=== PATIENT | female | born 1945 | race Caucasian/White ===

== ENCOUNTER 2023-10-30 09:52 | Emergency (ER) | payer MEDICARE, OTHER ==
[~2023-10-30] VITALS: Ht 167.6 cm; Wt 113.6 kg
[2023-10-30] MEDS ORDERED: KETOROLAC TROMETHAMINE 30 MG/ML VIAL IM ONE (10:15)
[2023-10-30] MEDS ORDERED: METFORMIN HCL500 MG PO (10:23)
[2023-10-30] MEDS ORDERED: PAROXETINE HCL30 MG PO (10:23)
[2023-10-30] MEDS ORDERED: LISINOPRIL10 MG PO (10:23)
[2023-10-30] MEDS ORDERED: LOVASTATIN40 MG PO (10:23)
[2023-10-30 11:48] VITALS: BP 124/68
== END 2023-10-30 11:52 | disposition home or self-care (01) ==
LOC: ED 09:52
DX: R51.9 Headache, unspecified (principal)
CPT/HCPCS: 96372; 99284; J1885

== ENCOUNTER 2024-08-07 03:38 | Inpatient (IN) | payer MEDICARE, OTHER ==
[~2024-08-07] VITALS: Ht 167.6 cm; Wt 114.9 kg
[2024-08-07] VITALS (10 sets, daily range): BP systolic 107–175; BP diastolic 46–99
[~2024-08-07 03:38] MED LIST: LISINOPRIL10 MG PO; LOVASTATIN40 MG PO; METFORMIN HCL500 MG PO; PAROXETINE HCL30 MG PO
[2024-08-07] MEDS ORDERED: LACTATED RINGER'S 1,000 ML IV PRN (03:45)
[2024-08-07] MEDS ORDERED: CEFTRIAXONE/SODIUM CHLORIDE 2 GM/100 ML PIGGYBACK IV ONE (03:45)
[2024-08-07 04:12] LABS: BILIRUBIN, URINE NEGATIVE (negative); BLOOD/HGB, URINE SMALL (Negative); KETONE, URINE NEGATIVE (Negative); LEUK ESTERASE, URINE MODERATE (negative); NITRITE, URINE POSITIVE (negative)
[2024-08-07 04:15] LABS: BASOPHILS 0.2 % (0-2); EOSINOPHILS 0.6 % (0-6); LYMPHOCYTES 5.9 % (24-44); MCH 32.4 (27-36); MCHC 33.4 g/dl (30-36); MONOCYTES 10.3 % (0-12); PLATELET COUNT 112 K/uL (140-440); RBC 4.02 M/ul (4.3-5.7); RDW 13.5 (10.5-15.0)
[2024-08-07 04:24] LABS: PARTIAL THROMBOPLASTIN TIME 29.1 Sec (22.9-41.3)
[2024-08-07 04:25] LABS: INR 1.1 (0.80-1.30); PROTIME 13.5 Sec (11.2-14.2)
[2024-08-07 04:26] LABS: BACTERIA, URINE 2+ /hpf (negative); CASTS, URINE NONE SEEN \\lpf; COLLECTION TYPE, URINE CLEAN CATCH; CRYSTALS, URINE NONE SEEN (0-1+); EPITHELIAL CELLS, URINE SQUAMOUS 1+ /lpf (0-1+); REFLEX CULTURE, URINE Yes (No); WHITE BLOOD CELLS, URINE >50 /HPF (0-5)
[2024-08-07 04:28] LABS: ALBUMIN/GLOBULIN RATIO 0.49 (1.1-2.4); ANION GAP 11.2 (7-21); BILIRUBIN, TOTAL 0.4 ng/dL (0.2-1.0); BUN/CREATININE RATIO 17.85 (6.0-28.6); CALCIUM 8.8 mg/dL (8.5-10.1); CREATININE, SERUM 1.4 mg/dL (0.55-1.02); POTASSIUM 4.2 mmol/L (3.5-5.1); PROTEIN, TOTAL 6.1 g/dL (6.4-8.2)
[2024-08-07 04:33] LABS: LACTIC ACID, BLOOD 1.3 mmol/L (0.4-2.0)
[2024-08-07 04:39] LABS: TSH, 3RD GENERATION 1.543 uIU/mL (0.358-3.740)
[2024-08-07] MEDS ORDERED: AZITHROMYCIN 250 MG TAB PO ONE (06:00)
[2024-08-07] MEDS ORDERED: NOREPINEPHRINE BITARTRATE 250 ML IV SCH (06:00)
[2024-08-07] MEDS ORDERED: DEXTROSE 5% 1,000 ML IV PRN (07:45)
[2024-08-07] MEDS ORDERED: SODIUM CHLORIDE 0.9% 1,000 ML IV SCH (07:45)
[2024-08-07] MEDS ORDERED: ACETAMINOPHEN 325 MG TAB PO PRN (07:45)
[2024-08-07] MEDS ORDERED: ondansetron HCL 4 MG/2 ML VIAL IV PRN (07:45)
[2024-08-07] MEDS ORDERED: DEXTROSE 50% 50 ML SYR IV PRN ×2 (07:45)
[2024-08-07] MEDS ORDERED: IBLOOD GLUCOSE TEST STRIP 1 EA TEST XX PRN (07:45)
[2024-08-07] MEDS ORDERED: GLUCAGON,HUMAN RECOMBINANT 1 MG/ML VIAL SUB-Q PRN (07:45)
[2024-08-07] MEDS ORDERED: INSULIN LISPRO 100 UNIT/ML ML SUB-Q SCH (08:00)
[2024-08-07] MEDS ORDERED: IBLOOD GLUCOSE TEST STRIP 1 EA TEST VI SCH (08:00)
[2024-08-07] MEDS ORDERED: LISINOPRIL5 MG PO (08:05)
--- NOTE | 2024-08-07 09:02 | NUR ---
REPORT RECIEVED FROM TABITHA SANCHEZ AND PT ARRIVED ON FLOOR WITH TABITHA LEON. PT SLID TO BED AND ROLLED TO REMOVED SOILED LINENS AND ASSESS SKIN. PT HAD SMALL AMT STOOL. RED IN FOLDS, SKIN BARRIER APPLIED AFTER CLEANING. PT TOLERATED WELL. ORDERED BREAKFAST. PT FED SELF. ALERT TO SELF AND ABLE TO ANSWER SOME QUESTIONS BUT NOT MUCH HX. PT TREMULOUS. BP MAP OF 70
[2024-08-07] MEDS ORDERED: MICONAZOLE NITRATE 1 EA BTL TOP SCH (09:47)
--- NOTE | 2024-08-07 10:15 | NUR ---
APPLIED ANTIFUNGAL TO PANNUS AND BREAST, GROIN AREAS. PT TOLERATED WELL. 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 DENIES NEEDS, DRINKING HER COFFEE.
--- NOTE | 2024-08-07 11:54 | NUR ---
PT NOT AVAILABLE FOR VISIT. PROVIDED PRAYER.
--- NOTE | 2024-08-07 11:59 | NUR ---
PT EATING LUNCH. BS WAS WNL. DENIES CONCERNS.
[2024-08-07] MEDS ORDERED: PHARMACY RENAL DOSE ADJUSTMENT 1 DOSE MISC PO SCH (12:00)
--- NOTE | 2024-08-07 13:19 | NUR ---
PT STATED SHE WET HER PANTS AND THE PUREWICK DID NOT PICK ANY OF IT UP. CHANGED WITH TABITHA Gibson ASSISTANCE. PT STATES SHE IS VERY TIRED AND WOULD LIKE A NAP.
--- NOTE | 2024-08-07 13:49 | NUR ---
PT WAS MOVING DURING BP AND READ EXTREMELY HIGH. REPEATED AND DID A MANUAL BP ON THE OTHER SIDE. BP 108\60 MANUALLY.
--- NOTE | 2024-08-07 14:30 | NUR ---
Pt lives at [facility]. She uses a walker and is mostly independent with her walker. Pt has been weak. She uses a shower chair. Per staff at [facility] pt did have HH PT, but declined to work with them. Plan is for pt to return to [facility], [place] when she is a 1 person assist and feeling better. Will need to fu with pt when she is feeling better for more infor or when family arrive.
--- NOTE | 2024-08-07 14:46 | NUR ---
PT UNABLE TO SLEEP. TURNED OFF LIGHTS AND TV SOUND.
--- NOTE | 2024-08-07 16:30 | NUR ---
PT FINISHED CRACKERS. WATCHING TV. DENIES NEEDS ATT.
--- NOTE | 2024-08-07 17:00 | NUR ---
PT BOOSTED IN BED AND SET UP FOR DINNER. PT STATES SHE ISN'T VERY HUNGRY SHE JUST ATE CRACKERS.
--- NOTE | 2024-08-07 17:13 | NUR ---
PT IV INFILTRATED NS. WRAPPED AND ELEVATED ON PILLOW. PT EATING DINNER.
--- NOTE | 2024-08-07 17:33 | NUR ---
STARTED NEW IV IN LFA. TW. IVF INFUSING. CHECKED DEPENDS, DRY NO STOOL, PURE WICK IN PLACE. EMPTIED CANISTER.
--- NOTE | 2024-08-07 18:57 | NUR ---
PT NOW SLEEPING. IVF INFUSING WO SIGNS OF INFILTRATION.
--- NOTE | 2024-08-07 19:55 | NUR ---
PATIENT ALERT, TALKATIVE WITH THIS RN , SHE IS DISORIENTED ALL BUT SELF. SHE REPORTS NO PAIN, SHE DID ASK FOR COKE, KAYLEYER, HOTDOGS, THIS RN SAID "I MIGHT BE ABLE TO GET A DIET PEPSI FROM THE [facility] LATER." SHE SAID, "THAT WOULD BE GREAT!" PATIENT NOTED TO HAVE COOL EXTREMETIES, WARM BLANKETS PROVIDED, AND ROOM TEMP TURNED UP. PATIENT SAID, "I THOUGHT THE ROOM WAS A LITTLE COOL, I JUST THOUGHT IT WAS ME." ASSESSMENT COMPLETE, V/S STABLE.
--- NOTE | 2024-08-07 21:45 | NUR ---
TWO RN ASSIST, PATIENT ASKED IF SHE IS READY FOR BED, SHE SAID, "YES" THIS RN AND SHANE CORNELL RN ASSISTED TO CHANGE LINENS, DEPENDS, AND PURWICK AT THIS TIME ALSO WASHED PANUS/GROIN AREA DRIED AND POWDERED WITH NYSTATIN POWDER TO ENTIRE AREA. PATIENT PLACED IN CLEAN GOWN AND REPOSITIONED TO PATIENT STATED COMFORT. SHE REPORTS SHE IS READY FOR SLEEP. NO OTHER NEEDS VERBALIZED AND CALL LIGHT IN REACH.
[2024-08-07] MEDS ORDERED: hydrALAZINE HCL 20 MG/ML VIAL IV PRN (22:45)
[2024-08-08] VITALS (13 sets, daily range): BP systolic 103–174; BP diastolic 55–86
--- NOTE | 2024-08-08 00:10 | NUR ---
PATIENT ASSISTED TO ROLL TO LEFT SIDE FOR COMFORT. PATIENT HELPED WITH BED MOBILITY.
--- NOTE | 2024-08-08 00:18 | NUR ---
PATIENT SLEEPING, STARTLED WITH RN AT BEDSIDE. ASSESSMENT COMPLETE NO NEW CONCERNS, NO REQUESTS AT THIS TIME.
--- NOTE | 2024-08-08 04:06 | NUR ---
PATIENT RESTING IN BED EYES CLOSED, RR 25/MIN, NO DISTRESS NOTED, PATIENT MILD SNORING NOTED.
[2024-08-08 05:29] LABS: BASOPHILS 0.1 % (0-2); EOSINOPHILS 1.1 % (0-6); HEMATOCRIT 37.5 % (35.0-50.0); HEMOGLOBIN 12.7 g/dL (12.0-18.0); LYMPHOCYTES 8.4 % (24-44); MCHC 33.8 g/dl (30-36); MCV 97.6 fl (81-99); MONOCYTES 11.5 % (0-12); NEUTROPHILS 78.9 % (39-80); PLATELET COUNT 112 K/uL (140-440); RBC 3.84 M/ul (4.3-5.7); RDW 13.5 (10.5-15.0)
[2024-08-08 05:45] LABS: ALBUMIN 1.7 g/dL (3.4-5.0); ALBUMIN/GLOBULIN RATIO 0.41 (1.1-2.4); ANION GAP 11.4 (7-21); BILIRUBIN, TOTAL 0.3 ng/dL (0.2-1.0); BUN/CREATININE RATIO 18.4 (6.0-28.6); CALCIUM 8.4 mg/dL (8.5-10.1); CREATININE, SERUM 1.25 mg/dL (0.55-1.02); MAGNESIUM 1.6 mg/dL (1.8-2.4); PHOSPHORUS, INORGANIC 2.7 mg/dL (2.5-4.9); POTASSIUM 4.4 mmol/L (3.5-5.1); PROTEIN, TOTAL 5.8 g/dL (6.4-8.2)
--- NOTE | 2024-08-08 07:20 | NUR ---
REPORT FROM TABITHA MARTINEZ INTERNATIONAL MARKETING INTERN. PATIENT RESTING IN BED AT THIS TIME.
[2024-08-08] MEDS ORDERED: MAGNESIUM CHLORIDE 64 MG TABCR PO ONE (08:00)
--- NOTE | 2024-08-08 08:46 | NUR ---
PATIENT WAKES TO RN IN ROOM. PATIENT READY FOR BREAKFAST BUT WANTS TO SIT IN CHAIR. PHYSICAL THERAPY TO ASSIST IN THIS. PATIENT AGREEABLE.
--- NOTE | 2024-08-08 09:10 | NUR ---
PHYSICAL THERAPY IN ROOM. PATIENT UP TO CHAIR. 2 PERSON ASSIST WITH WALKER.
--- NOTE | 2024-08-08 09:55 | NUR ---
PATIENT UP IN CHAIR WITH PUREWICK IN PLACE. PHONE CALL FROM RACHEL.
--- NOTE | 2024-08-08 11:47 | NUR ---
IN TO SPEAK WITH THE PATIENT. PATIENT IS UNSURE WHO HERE PCP IS AT THIS TIME. REQUESTED PERMISSION TO CALL [facility] TO DISCUSS, PATIENT AGREES. PER REBEL AT [facility] PATIENT IS ESTABLISHED WITH RENAN WHEELER. EMAIL SEND TO ADMITTING TO UPDATE.
--- NOTE | 2024-08-08 11:54 | NUR ---
PATIENT REMAINS UP IN CHAIR FOR LUNCH. BLOOD SUGAR CHECKED AND 1 UNIT GIVEN PER SLIDING SCALE. DENIES NEEDS AT THIS TIME.
--- NOTE | 2024-08-08 13:35 | NUR ---
DR. DAVEY IN ROOM
--- NOTE | 2024-08-08 14:04 | NUR ---
UR CLINICAL REVIEW: 2 MN FOR [facility] INPT CRITERIA FOR [facility] INPT 08/07/24 @ 0753 ORDER MATCHES REG NO AUTH REQUIRED PER MEDICARE GUIDELINES DISCHARGE TO HOME WHEN STABLE. PATIENT RESIDES AT [facility]
--- NOTE | 2024-08-08 14:59 | NUR ---
patient up in chair. purewick in place. denies needs
--- NOTE | 2024-08-08 16:11 | NUR ---
PATIENT TRANSPORTED IN CHAIR TO MS ROOM 121. VSS. BEDSIDE REPORT TO TABITHA ABBOTT.
--- NOTE | 2024-08-08 19:23 | NUR ---
RECEIVED REPORT FROM TABITHA ABBOTT. PT UP IN CHAIR, READY FOR BED. UPSET OPERATOR'S NOTIFIED AND IN TO TRANSFER TO BED.
--- NOTE | 2024-08-08 19:45 | NUR ---
PT RESTING IN BED, REPORTS BEING VERY TIRED TONIGHT. VSS. DENIES PAIN. ORIENTED X SELF AND SITUATION BUT NOT PLACE OR DATE. LSC DIM. HRR. BTA. UNSURE OF LBM. PUREWICK IN PLACE-UO JAYLYN. LFA IV W/ IVF INFUSING. BRIGHT RED RASH TO RIGHT BREAST, PANNUS AND GROIN-CLEANSED W/ SOAP AND WATER AND ANTI-FUNGAL POWDER APPLIED. SCD'S IN PLACE FOR HS. BED ALARM ON FOR SAFETY. CALL LIGHT WITHIN REACH-REINFORCED USE.
--- NOTE | 2024-08-08 21:44 | NUR ---
PT W/ INCREASING CONFUSION AND SUSPICION W/ STAFF NEEDING REORIENTATION. BED ALARM IN PLACE.
--- NOTE | 2024-08-08 22:45 | EKG ---
[facility] [address] [place] [address] Signed Sinus rhythm with premature atrial complexes Low voltage QRS Right bundle branch block Abnormal ECG No previous ECGs available Confirmed by Edmund Davey MD () on 08/08/2024 10:45:40 PM Electronically Signed By: EDMUND DAVEY MD 08/08/24 2245 PATIENT NAME: SHAUNNA HWANG Electrocardiogram DATE OF : 41 PHYSICIAN: EDMUND DAVEY MD REPORT #: [id number] REPORT IS CONFIDENTIAL AND NOT TO BE RELEASED WITHOUT AUTHORIZATION
--- NOTE | 2024-08-08 22:59 | NUR ---
PT AWAKE R/T IV BEEPING. SLEEPING BETWEEN CARE. BED ALARM IN PLACE.
--- NOTE | 2024-08-09 00:34 | NUR ---
PT SLEEPING SOUNDLY. APPEARS COMFORTABLE. BED ALARM IN PLACE.
--- NOTE | 2024-08-09 03:35 | NUR ---
PT SLEEPING SOUNDLY. APPEARS COMFORTABLE. BED ALARM IN PLACE.
[2024-08-09 05:31] VITALS: BP 99/42
[2024-08-09 05:36] VITALS: BP 99/42
[2024-08-09 05:45] LABS: BASOPHILS 0.4 % (0-2); EOSINOPHILS 3.2 % (0-6); HEMATOCRIT 35.8 % (35.0-50.0); HEMOGLOBIN 11.9 g/dL (12.0-18.0); LYMPHOCYTES 9.8 % (24-44); MCH 32.9 (27-36); MCHC 33.4 g/dl (30-36); MCV 98.5 fl (81-99); MONOCYTES 10.3 % (0-12); NEUTROPHILS 76.3 % (39-80); PLATELET COUNT 112 K/uL (140-440); RBC 3.63 M/ul (4.3-5.7); RDW 13.6 (10.5-15.0)
[2024-08-09 05:57] LABS: ANION GAP 11.2 (7-21); BUN/CREATININE RATIO 21.69 (6.0-28.6); CALCIUM 8.3 mg/dL (8.5-10.1); CREATININE, SERUM 1.06 mg/dL (0.55-1.02); MAGNESIUM 1.6 mg/dL (1.8-2.4); POTASSIUM 4.2 mmol/L (3.5-5.1)
--- NOTE | 2024-08-09 06:15 | NUR ---
PT AWAKE, SLEEPING BETWEEN CARES. LFA IV REWRAPPED W/ COBAN. BED ALARM IN PLACE. CALL LIGHT WITHIN REACH.
[2024-08-09] MEDS ORDERED: MAGNESIUM CHLORIDE 64 MG TABCR PO ONE (07:30)
--- NOTE | 2024-08-09 09:36 | NUR ---
Patient assisted to chair 2pa with FWW. Patient is slow to move and fearful of falling, she was able to get to chair safely with help. Patient reports she slept well. Pure wick changed at this time. Patient received tylenol 650mg po with morning medications for reports of headache. No further needs at this time, personal supplies and call light within reach.
--- NOTE | 2024-08-09 09:45 | NUR ---
PT UP TO CHAIR. PUREWICK CHANGED. BREAKFAST SERVED. LINENS CHANGED.
--- NOTE | 2024-08-09 09:53 | NUR ---
CALLED AND SPOKE WITH KIYA AT [facility] AND INFORMED THEM PATIENT WILL BE RETURNING TODAY AND WILL FAX CLINICALS AND ORDERS WHEN AVAILABLE.
[2024-08-09 10:15] VITALS: BP 101/49
[2024-08-09 10:30] VITALS: BP 101/49
--- NOTE | 2024-08-09 10:37 | NUR ---
DISCUSSED WITH PATIENT PLAN TO DC TODAY. REQUESTS STAFF CALL [facility] TO TRANSPORT HER BACK TO [facility].
--- NOTE | 2024-08-09 11:22 | NUR ---
Patient sitting up in chair resting, eyes closed, respirations even and non labored. No distress, personal supplies and call light within reach.
[2024-08-09] MEDS ORDERED: CEFTRIAXONE/SODIUM CHLORIDE 2 GM/100 ML PIGGYBACK IV SCH (11:46)
[2024-08-09] MEDS ORDERED: AZITHROMYCIN 250 MG TAB PO ONE (12:00)
[2024-08-09] MEDS ORDERED: AZITHROMYCIN250 MG PO (12:07)
[2024-08-09] MEDS ORDERED: CEFDINIR300 MG PO (12:07)
--- NOTE | 2024-08-09 12:31 | NUR ---
Patient sitting up in chair eating lunch, alert to self and place. Scheduled abx started per order. Patient tolerating her lunch well, no distress. Personal supplies and call light within reach.
--- NOTE | 2024-08-09 13:21 | NUR ---
ORDERS AND NOTES FAXED TO [facility]. CALLED [facility] TO SCHEDULE TRANSPORT. AWAITING RETURN CALL FOR TRANSPORT TIME.
[2024-08-09 13:35] VITALS: BP 110/57
--- NOTE | 2024-08-09 13:55 | NUR ---
[facility] SCHEDULED FOR TO TAKE PATIENT TO [facility]. NURSING STAFF NOTIFIED.
--- NOTE | 2024-08-09 13:59 | NUR ---
ORDERS, H&P, PROG NOTES, DC SUMMARY AND PT/OT NOTES FAXED TO [facility].
== END 2024-08-09 14:00 | disposition home health service (06) | DRG 689 ==
LOC: ED 03:38 → CCU 07:53 → MS 08-08 16:05
PROVIDERS: Internal Medicine; ADMIT Family Medicine; ATTEND Family Medicine
PROC: 3E03329 Introduction of Other Anti-infective into Peripheral Vein, Percutaneous Approach (ICD-10-PCS; principal; 2024-08-07)
PROC: 3E033XZ Introduction of Vasopressor into Peripheral Vein, Percutaneous Approach (ICD-10-PCS; 2024-08-07)
DX: N39.0 Urinary tract infection, site not specified (principal); A41.9 Sepsis, unspecified organism; J18.9 Pneumonia, unspecified organism; N17.9 Acute kidney failure, unspecified; F03.94 Unspecified dementia, unspecified severity, with anxiety; E83.42 Hypomagnesemia; E11.9 Type 2 diabetes mellitus without complications; Z66 Do not resuscitate; B35.4 Tinea corporis; Z79.84 Long term (current) use of oral hypoglycemic drugs; Z79.899 Other long term (current) drug therapy
CPT/HCPCS: 36415; 51701; 70450; 71045; 80048; 80053; 81001; 83605; 83735; 83880; 84100; 84443; 84484; 85025; 85610; 85730; 87040; 87077; 87088; 87186; 93005; 93010; 97162; 97166; 97530; 97535; 99285-25; A9270; J0696; J1815; J7030